=== PATIENT | male | born 1960 | race Caucasian/White ===

== ENCOUNTER 2024-09-03 08:31 | Emergency (ER) | payer OTHER, SELFPAY ==
--- OUTSIDE RECORDS SUMMARY | 2024-09-03 08:33 | XMS_ITS | Referral Summary ---
Author Organization [facility] [address] Address [address] [place] [address] Care Team Providers Care Outbound Supervisor Name Role Phone Monie Mcintosh SECURITY SALES MANAGER Primary Care Provider + Allergies No known active allergies Medications metoprolol tartrate (LOPRESSOR) 25 mg immediate release tabletIndications :Palpitations TAKE 1 TABLET(25 MG) BY MOUTH TWICE DAILY 180 tablet 3 07/04/2024 Active losartan (COZAAR) 25 mg tabletIndications :Essential hypertension TAKE 1 TABLET(25 MG) BY MOUTH DAILY 90 tablet 3 07/04/2024 Active Active Problems Problem Noted Date Diagnosed Date Essential hypertension 09/13/2023 SAMANTA (obstructive sleep apnea) 01/17/2019 PND (paroxysmal nocturnal dyspnea) 09/02/2018 Witnessed episode of apnea 09/02/2018 Gastroesophageal reflux disease 09/02/2018 Elevated blood pressure reading 09/02/2018 MERCHANT (dyspnea on exertion) 09/02/2018 Abnormal EKG 09/02/2018 Palpitations 09/02/2018 Hypersomnolence 09/02/2018 Social History Tobacco Use Types Packs/Day Years Used Date Smoking Tobacco: Never Smokeless Tobacco: Never Alcohol Use Standard Drinks/Week Comments Yes 2 (1 standard drink = 0.6 oz pur e alcohol) occassionally Personal Safety Answer Date Recorded Getting School Help Needed Not on file 09/13 Sex and Gender Information Value Date Recorded Sex Assigned at Not on file 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 Gender Identity Not on file Sexual Orientation Not on file Last Filed Vital Signs Vital Sign Reading Time Taken Comments Blood Pressure 104/64 03/21/2024 9:55 AM CDT Pulse 61 03/21/2024 9:55 AM CDT Temperature - - Respiratory Rate - - Oxygen Saturation 95% 03/21/2024 9:55 AM CDT Inhaled Oxygen Concentration - - Weight 93.9 kg (207 lb) 03/21/2024 9:55 AM CDT Height 190.5 cm (6' 3 ) 03/21/2024 9:55 AM CDT Body Mass Index 25.87 03/21/2024 9:55 AM CDT Plan of Treatment Not on file Insurance [facility] Care Teams Outbound Supervisor Relationship Specialty Start Date End Date Monie Mcintosh NP PCP - General Nurse Practitioner 07/19/17
--- OUTSIDE RECORDS SUMMARY | 2024-09-03 08:33 | XMS_ITS | Clinical Summary ---
Author Organization [facility] [address] Address [address] [place] [address] Care Team Providers Care Rn Cvicu Name Role Phone Monie Mcintosh CRAFT COORDINATOR Primary Care Provider + Allergies No known [...] Abnormal EKG 09/02/2018 Palpitations 09/02/2018 Hypersomnolence 09/02/2018 Medical History Medical History Date Comments Acid indigestion Anxiety and depression Kidney stones Family History Medical History Relation Name Comments Emphysema Father Suicide Completion Father Diabetes Mother Emphysema Mother Relation Name Status Comments Father (Age 64) Mother (Age 78) Social History Tobacco Use Types Packs/Day Years Used Date Smoking Tobacco: Never Smokeless Tobacco: Never Alcohol Use Standard Drinks/Week Comments Yes 2 (1 standard drink = 0.6 oz pur e alcohol) occassionally Personal Safety Answer Date Recorded Getting School Help Needed Not on file 09/13 Sex and Gender Information Value Date Recorded Sex Assigned at Not on file 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 Gender Identity Not on file Sexual Orientation Not on file Obstetrics History Last Filed Vital Signs Vital Sign Reading [...] 03/21/2024 9:55 AM CDT Plan of Treatment Health Maintenance Due Date Last Done Comments Colon Cancer Screening-Colonoscopy 1959 Depression Screening 1959 Fall Risk Assessment 1959 Hepatitis C Screening 1959 Prostate Cancer Screening-PSA 1959 DTaP/Tdap/Td Vaccine (1 - Tdap) 1970 Hepatitis B Screening 1977 Zoster Vaccine (1 of 2) 2009 Covid-19 Vaccine ( season) 2024 11/01/2021, 02/27/2021, 02/06/2021 Influenza Vaccine (#1) 2024 05/07/2020, 2014 Pneumococcal vaccine 65+ (1 of 1 - PCV) 2024 Well Visit 65+ 2024 Insurance [facility] Care Teams Rn Cvicu Relationship Specialty Start Date End Date Monie Mcintosh NP PCP - General Nurse Practitioner 07/19/17
[2024-09-03 08:46] VITALS: BP 148/94; PULSE 79; RESP 18; TEMP 37.3; O2SAT 99
--- NOTE | 2024-09-03 09:04 | ED_ITS ---
HPI - General Adult General Chief complaint: Dental/Oral Stated complaint: RT jaw infection Time Seen by Provider: 09/03/24 08:33 Source: patient and family () Mode of arrival: ambulatory Limitations: no limitations History of Present Illness HPI narrative: 64-year-old male presents to [facility] accompanied by his significant other for complaints of right facial cheek swelling and pain for the past 48 hours. Patient reports that he did remove a white-colored Hardened object from his inner right facial cheek last night. Patient denies fever, body aches, chills, nausea vomiting or diarrhea. Patient is nonsmoker. Patient has been completing warm salt water gargles and gargling mouthwash as well as taking Tylenol with little relief. Patient reports he does have a long history of dental issues and does see a dentist. Onset (ago): day(s) (2) Relieving factors: none Exacerbating factors: none Associated symptoms: denies other symptoms Treatments prior to arrival: other (Tylenol) Related Data Home Medications ?Medication ?Instructions ?Recorded ?Confirmed ?Last Taken ?Type losartan 25 mg tablet mg 09/03/24 Unknown History metoprolol tartrate 25 mg tablet mg 09/03/24 Unknown History Allergies Allergy/AdvReac Type Severity Reaction Status Date / Time No Known Allergies Allergy Unknown Verified 09/03/24 08:52 Review of Systems Constitutional: Constitutional: Denies chills, Denies fatigue, Denies fever(s) and Denies weakness ENT: Denies dizziness, Denies epistaxis and Denies nasal congestion Comments: Right facial cheek swelling and pain Cardiovascular: Cardiovascular: Denies chest pain Respiratory: Respiratory: Denies cough, Denies dyspnea and Denies wheezing Gastrointestinal: Gastrointestinal: Denies diarrhea, Denies nausea and Denies vomiting Musculoskeletal: Musculoskeletal: Denies joint swelling Integumentary/Breasts: Skin/Breast: Denies rash Neurologic: Denies dizziness, Denies syncope and Denies headache(s) [facility] Family History Family History Mother Diabetes mellitus Family history of emphysema Family history of sleep apnea Father Family history of emphysema Social History Social History Smoking status: Never smoker Alcohol intake: current Comments At time of signature, I agree with nursing past medical, surgical, social and family history. There is no relevant family history pertinent to the presenting complaint. Exam Const: General: healthy appearing and no acute distress Nutritional Appearance: well nourished Orientation/consciousness: patient oriented x3 Limitations: no limitations HENMT: Head: normal to inspection Other: Mild swelling noted to right facial cheek. There are chronic dental caries noted. There does appear to be an area where a possible salivary stone was removed by patient to right inner facial cheek. There is no abscess noted. T here is no bleeding, bruising or purulent drainage noted. Eyes: Conjunctivae: conjunctivae normal Neck: Neck: normal visual inspection Resp: Effort & Inspection: normal respiratory effort and not labored Auscu ltation: clear to auscultation bilaterally, no crackles, no rales, no rhonchi and no wheezes Cardio: Rate: regular rate Rhythm: regular rhythm Heart sounds: no murmurs Skin: General skin exam: normal color Rashes: no rashes Wounds: no wounds Neuro: General: patient oriented x3 Speech: normal speech Gait exam (Neuro): Normal gait present Psych: Affect: normal affect Attitude: cooperative Course Course Level of Care: Express Care Visit Vital Signs Vital signs: Vital Signs Temperature 37.3 C 09/03/24 08:46 Pulse Rate 79 09/03/24 08:46 Respiratory Rate 18 09/03/24 08:46 Blood Pressure 148/94 H 09/03/24 08:46 Pulse Oximetry 99 09/03/24 08:46 Oxygen Delivery Room Air 09/03/24 08:46 Temperature 37.3 C 09/03/24 08:46 Pulse Rate 79 09/03/24 08:46 Respiratory Rate 18 09/03/24 08:46 Blood Pressure 148/94 H 09/03/24 08:46 Pulse Oximetry 99 09/03/24 08:46 Oxygen Delivery Room Air 09/03/24 08:46 Medical Decision Making MDM Narrative Medical decision making narrative: Instructed patient to take oral antibiotic as prescribed and to continue to complete warm saltwater gargles as needed. Instructed patient to follow-up with primary care provider next week to follow-up in symptoms. Instructed patient to proceed to the emergency room if symptoms worsen Differential Diagnosis Differential Diagnosis: Dental caries, viral illness Vital Signs Vital Signs: Vital Signs Temperature 37.3 C 09/03/24 08:46 Pulse Rate 79 02/16/25 08:46 Respiratory Rate 18 09/03/24 08:46 Blood Pressure 148/94 H 09/03/24 08:46 Pulse Oximetry 99 09/03/24 08:46 Oxygen Delivery Room Air 09/03/24 08:46 Temperature 37.3 C 09/03/24 08:46 Pulse Rate 79 09/03/24 08:46 Respiratory Rate 18 09/03/24 08:46 Blood Pressure 148/94 H 09/03/24 08:46 Pulse Oximetry 99 09/03/24 08:46 Oxygen Delivery Room Air 09/03/24 08:46 Critical Care Time Critical Care Time Critical Care Time: No Discharge Plan Discharge Clinical Impression: Sialadenitis Patient Disposition: Home, Self-Care Condition: Stable Instructions: Antibiotic Form, Sialoadenitis (ED) Additional Instructions: Alternate Motrin and Tylenol as needed Complete warm saltwater gargles as needed Take antibiotic as prescribed Follow-up with primary care provider in 48 hours to re-evaluate symptoms Proceed to the emergency room if symptoms worsen Patient Language: Ugandan Prescriptions: New amoxicillin-pot clavulanate 875-125 mg tablet 1 tablet PO Q12H 10 Days Qty: 20 0RF No Action losartan 25 mg tablet metoprolol tartrate 25 mg tablet Follow-up/Referrals: Trent,MD Nikita [Primary Care Provider] - Stand Alone Forms: Work/School Release IP Time of Disposition: 09:11
== END 2024-09-03 09:18 | disposition home or self-care (01) ==
PROVIDERS: Emergency Provider Nurse Practitioner Family; PCP Family Medicine
DX: K11.20 Sialoadenitis, unspecified (principal); I10 Essential (primary) hypertension; E78.00 Pure hypercholesterolemia, unspecified
CPT/HCPCS: 99213; G0463